=== PATIENT | female | born 1990 | race Caucasian/White ===

== ENCOUNTER 2017-07-12 11:51 | Emergency (ER) | payer OTHER ==
[2017-07-12 12:08] VITALS: RESP 18; TEMP 98; O2SAT 97
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
[2017-07-12 13:37] VITALS: BP 118/62; PULSE 78
== END 2017-07-12 13:35 | disposition home or self-care (01) ==
LOC: CED 11:51
DX: S16.1XXA Strain of muscle, fascia and tendon at neck level, initial encounter (principal); V49.40XA Driver injured in collision with unspecified motor vehicles in traffic accident, initial encounter; Y92.410 Unspecified street and highway as the place of occurrence of the external cause; Y99.8 Other external cause status; Y93.89 Activity, other specified
CPT/HCPCS: 72040-PO